=== PATIENT | male | born 1950 | race Caucasian/White ===

== ENCOUNTER 2019-06-02 10:42 | Emergency (ER) | payer OTHER, SELFPAY ==
[2019-06-02] VITALS (7 sets, daily range): BP systolic 159–175; BP diastolic 80–99; PULSE 68–99; RESP 14–22; TEMP 36.2; O2SAT 96–98
--- NOTE | ~2019-06-02 | XR_ITS ---
XR chest 2V DATE: 06/02/2019 11:39 INDICATION: Cough, fever TECHNIQUE: PA and lateral views COMPARISON: None FINDINGS: Several surgical clips overlie the right supraclavicular area. Old lateral right seventh ri b fracture deformity. Mild degenerative spurring of the thoracic spine. Normal heart size. No hilar or mediastinal enlargement. There is minimal aortic unfolding. No pulmonary infiltrate or consolidation, pleural effusion or pulmonary vascular congestion or pneumo thorax. IMPRESSION: No active cardiopulmonary disease Reviewed, dictated and finalized at [facility]. NG TRIMMER
--- NOTE | 2019-06-02 10:49 | ECG_ITS ---
Measurements Intervals [place] Rate: 77 P: 61 VA: 144 QRS: 2 QRSD: 91 T: 18 QT: 372 QTc: 423 Interpretive Statements SINUS RHYTHM DELAYED PRECORDIAL R/S TRANSITION BORDERLINE T WAVE ABNORMALITY- INFERIOR LEADS BORDERLINE ECG Electronically Signed On 06-02-2019 18:54:10 BUCKET CHUCKER by Marco Antonio Lanier D.O.
--- NOTE | 2019-06-02 11:05 | ED.SOB ---
HPI - SOB/Dyspnea General Chief Complaint: Shortness of Breath/Dyspnea Stated Complaint: Cough, SOB, Sent From [facility] Time Seen by Provider: 06/02/19 10:48 Source: patient Mode of arrival: ambulatory Limitations: no limitations History of Present Illness HPI Narrative: This is a 69 year old male that presents to the ER for cold symptoms x 1.5 weeks. Reports fever, cough, congestion, rhinorrhea, and shortness of breath. Also reports generalized weakness. Reports he was seen at the urgent care for this and sent here for further evaluation. Denies chest pain, abdominal pain, nausea, vomiting, dysuria, or hematuria. Related Data Allergies Allergy/AdvReac Type Severity Reaction Status Date / Time No Known Allergies Allergy Verified 06/02/19 10:57 Review of Systems Review of Systems: Narrative: CONSTITUTIONAL: Reports fever, chills ENT: Reports rhinorrhea, congestion, sore throat. Denies otalgia. CARDIOVASCULAR: Denies chest pain or edema. RESPIRATORY: Reports cough and dyspnea. GASTROINTESTINAL: Denies abdominal pain, nausea, vomiting GENITOURINARY: Denies dysuria or hematuria. NEUROLOGIC: Reports weakness. All systems reviewed & are unremarkable except as noted in HPI and below PMFSH Past Medical History Medical History (Updated 06/02/19 @ 13:21 by Francine Paz PA-C) History of Crohn's disease Social History Social History (Updated 06/02/19 @ 11:08 by Francine Paz PA-C) Smoking status: Never smoker Gender identity (if verbalized by the patient): Male Exam Narrative: Exam Narrative: GENERAL: Well-appearing, well-nourished, and in no acute distress. HEAD: Normocephalic, atraumatic. EYES: EOMI. ENT: Nares clear, no rhinorrhea or epistaxis. Mucous membranes moist. Oropharynx without tonsillar hypertrophy exudate or other lesions. Bilateral TMs pearly lopez non-bulging NECK: Supple. No adenopathy or masses. CHEST: No respiratory distress. Mildly coarse breath sounds in the bases. No wheezes, rales or rhonchi HEART: Regular rate and rhythm. No murmur heard. Normal peripheral pulses. EXTREMITIES: Normal range of motion. No edema. SKIN: Warm, dry, no rash. NEURO: No focal deficits. Alert and oriented x3. PSYCH: Normal mood and affect Course Vital Signs Vital signs: Vital Signs Temperature 97.2 F L 06/02/19 10:49 Pulse Rate 68 06/02/19 10:49 Respiratory Rate 14 06/02/19 10:49 Blood Pressure 159/80 H 06/02/19 10:49 Pulse Oximetry 98 06/02/19 10:49 Temperature 97.2 F L 06/02/19 10:49 Pulse Rate 99 06/02/19 13:14 Respiratory Rate 21 H 06/02/19 11:17 Blood Pressure 175/99 H 06/02/19 13:14 Pulse Oximetry 98 06/02/19 10:49 MDM - SOB/Dyspnea MDM Narrative Medical decision making narrative: Patient presents to the emergency department for cold symptoms x1/2 weeks. Reports feeling short of breath. Denies any chest pain. He is afebrile and nontoxic-appearing. Blood pressure has an elevated to the 150s-170s systolic while in the ED. Otherwise vitals are normal. CBC and metabolic panel without acute changes. Lactic acid is not elevated. Influenza screen is negative. Chest x-ray without acute changes. EKG without acute changes. Patient reports improvement after nebulizer treatment and would like to go home. He will be treated with steroids and given an albuterol inhaler for acute bronchitis. He was instructed on other [id number] symptomatic care. He is to follow-up with primary care doctor. Patient made aware of need for follow up for his blood pressure as well. He was given warnings to return to the ER Lab Data Attestation: I reviewed the patient's lab results. Result diagrams: 06/02/19 11:03 06/02/19 11:03 Labs: Lab Results 06/02/19 06/02/19 06/02/19 Range/Units 11:03 11:03 11:03 WBC 6.5 (4.5-10.0) K/mm3 RBC 5.10 (4.6-6.20) M/mm3 Hgb 15.7 (14.0-18.0) g/dL Hct 46.9 (42.0-52.0) % MCV 92.0 (80-100) fl
[2019-06-02] MEDS: ALBUTEROL SULFATE NEB 2.5 MG/0.5 ML INH 5 MG INHALATION (11:06)
[2019-06-02] MEDS: IPRATROPIUM BR 0.02% INH SOLN 0.5 MG/2.5 ML VIAL INHALATION (11:07)
[2019-06-02 11:10] LABS: Basophils Percent Auto 0.6 % (0.2-1.2); Eosinophils Percent Auto 0.6 % (0-4.4); Hematocrit 46.9 % (42.0-52.0); Hemoglobin 15.7 g/dL (14.0-18.0); Immature Granulocyte Absolute 0.03 K/mm3 (0.00-0.031); Immature Granulocyte Percent A 0.5 % (0-0.5); Lymphocytes Absolute Auto 1.48 K/mm3 (0.9-3.2); Lymphocytes Percent Auto 22.6 % (18.3-44.2); Mean Corpuscular HGB Conc 33.5 g/dl (32-36); Mean Corpuscular Hemoglobin 30.8 pg (26-34); Mean Platelet Volume 10.5 fl (7.4-10.4); Monocytes Absolute Auto 0.9 K/mm3 (0.1-0.6); Monocytes Percent Auto 13.3 % (2.6-8.5); Neutrophils Absolute Auto 4.1 K/mm3 (1.3-6.7); Neutrophils Percent Auto 62.4 % (45.5-73.1); Platelet Count Result 283 k/mm3 (150-375); Red Cell Distribution Width 12.8 % (11.5-14.5); White Blood Count 6.5 K/mm3 (4.5-10.0)
[2019-06-02 11:23] LABS: Lactic Acid Reflex 2.1 mmol/L (0.7-2.1)
[2019-06-02 11:26] LABS: Blood Urea Nitrogen 16 mg/dL (9-20); Carbon Dioxide 24 mmol/L (22-30); Chloride 99 mmol/L (98-107); Estimated CRCL calculation 68 ml/min; Estimated Glomerular Filt Rate > 60; Glucose 101 mg/dL (75-110); Potassium 3.9 mmol/L (3.4-5.0); Sodium 139 mmol/L (137-145)
[2019-06-02 11:42] LABS: CRP 2.5 mg/dL (<1.0)
[2019-06-02] MEDS: SODIUM CHLORIDE 0.9% IV 1,000 ML 999 ML IV CONT (12:09)
[2019-06-02 14:06] LABS: Reflex Lactic Acid Yes or No Add Lactic
== END 2019-06-02 13:50 | disposition home or self-care (01) ==
PROVIDERS: Physician Assistant; Emergency Provider Emergency Medicine
DX: J20.9 Acute bronchitis, unspecified (principal); K50.90 Crohn's disease, unspecified, without complications
CPT/HCPCS: 36415; 71046; 80048; 83605; 85025; 86140; 87804; 93005; 94640; 96361; 96365; 99284; J0131; J7030

== ENCOUNTER 2019-06-03 11:55 | Observation (INO) | payer OTHER, SELFPAY ==
[2019-06-03] VITALS (29 sets, daily range): BP systolic 130–173; BP diastolic 50–91; PULSE 73–113; RESP 14–32; TEMP 36.3–37.4; O2SAT 94–100
--- NOTE | ~2019-06-03 | CT_ITS ---
EXAMINATION: CTA chest PE protocol DATE: 06/03/2019 13:10 INDICATION: Dyspnea TECHNIQUE: Computed tomography angiography (CTA) of the chest was performed with 100 mL Omnipaque-350 intravenous contrast timed to evaluate the pulmonary arteries. Coronal maximum intensity projection 3D-reconstructions were created by the technologist. Automated exposure control and iterative reconst ruction technique were employed. Exam dose: 397.03 mGy-cm total exam DLP. COMPARISON: 06/02/2021 view chest FINDINGS: There is diagnostic contrast enhancement of the pulmonary arteries and no evidence of pulmo nary embolism. No thoracic aortic aneurysm or dissection. Heart size is within normal range. No pericardial or pleural effusion. Mild bilateral apical scarring. Right upper lobe calcified pulmonary granuloma. Mild bilateral lower lobe dependent atelectasis. No pulmonary infiltrate or consolidation. Normal morphology of the adrenal glands. Included upper abdominal structures are unremarkable. IMPRESSION: No evidence of pulmonary embolism Reviewed, dictated and finalized at [facility]. Reviewed, dictated and finalized at location [facility]. ISENSOR INTELLIGENCE OFFICER
--- NOTE | 2019-06-03 11:54 | ED.SOB ---
HPI - SOB/Dyspnea General Chief Complaint: Upper Respiratory Infection Stated Complaint: resp distress Time Seen by Provider: 06/03/19 11:56 Source: patient Mode of arrival: EMS Limitations: no limitations History of Present Illness HPI Narrative: A 69 y/o male presents to the ED, via EMS, with c/o SOB. Pt states that he has been SOB for the past 1 week. Yesterday the patient was seen at an urgent care and and sent to [place] ED for further evaluation. At his ED visit yesterday, he was diagnosed with bronchitis and was given a breathing treatment and IV Tylenol with some relief. He tested negative for the flu yesterday. Pt adds that this morning he did not feel good when he woke up and his SOB was worse, so he decided to come to the ED. He reports cough, nausea, and dizziness, but denies vomiting, CP, and fever. Pt is a never smoker and his PCP is Dr. Franco. He has a PMHx of crohn's disease, bowel surgery, and bowel obstruction. MD elicited complaint: shortness of breath Pertinent past history: other (Bronchitis) Onset (ago): week(s) (1) Context: recent illness (Bronchitis) Timing: progressively worsening Relieving factors: bronchodilators (Brething treatment) and medication (IV Tylenol) Associated symptoms: cough, nausea/vomiting and dizziness Related Data Allergies Allergy/AdvReac Type Severity Reaction Status Date / Time No Known Allergies Allergy Verified 06/02/19 10:57 Review of Systems Review of Systems: All systems reviewed & are unremarkable except as noted in HPI and below Constitutional: Constitutional: Denies fever(s) Cardiovascular: Cardiovascular: Denies chest pain Respiratory: Respiratory: Reports cough and Reports dyspnea Gastrointestinal: Gastrointestinal: Reports nausea and Denies vomiting Neurologic: Reports dizziness PMFSH Past Medical History Medical History (Updated 06/03/19 @ 17:28 by Becka Perez MD) Bowel obstruction Bronchitis History of Crohn's disease Surgical History Surgical History (Updated 06/03/19 @ 16:54 by Mitch Mcgarry MD) History of intestinal surgery 1994 SBO treated surgically Family History Family History (Updated 06/03/19 @ 17:02 by Mitch Mcgarry MD) Father , at age 63 after [place] at age 55 Acute myocardial infarction Mother Diabetes mellitus Social History Social History Smoking status: Never smoker Alcohol intake: never Substance use: never Substance use type: does not use Gender identity (if verbalized by the patient): Male Spiritual care concerns: No Agree to blood products: Yes Exam Const: General: cooperative, alert and ill appearing acutely Nutritional Appearance: well nourished Orientation/consciousness: patient oriented x3 Limitations: no limitations HENMT: Mouth: Yes lip normal and Yes moist mucous membranes Resp: Effort & Inspection: normal respiratory effort and tachypneic Auscultation: wheezes expiratory wheezes and throughout Cardio: Rate: tachycardic Rhythm: regular rhythm Peripheral pulses: dorsalis pedis present bilateral 2+ GI: GI Palp: Yes Soft to palpation and No Tenderness to palpation present (GI) Auscultation: normal bowel sounds Skin: General skin exam: normal color Neuro: General: patient oriented x3 Cognition (Neuro): normal cognition Speech: normal speech Extrem: General: normal to inspection, full ROM, no clubbing, cyanosis or edema and no calf tenderness Psych: Mental Status: mental status grossly normal Affect: normal affect Attitude: cooperative Course Course Emergency Course: This presents to the emergency department with respiratory distress via EMS from home. Patient had been seen in the emergency department yesterday and diagnosed with bronchitis and prescribed bronchodilators and steroids. Patient became significantly short of breath this morning and was noted to be rather distressed by EMS evaluation. Patient arr
--- NOTE | 2019-06-03 12:02 | ECG_ITS ---
Measurements Intervals [place] Rate: 93 P: 62 NV: 154 QRS: -6 QRSD: 85 T: 9 QT: 359 QTc: 447 Interpretive Statements SINUS RHYTHM POSSIBLE LEFT ATRIAL ENLARGEMENT DELAYED PRECORDIAL R/S TRANSITION BORDERLINE T WAVE ABNORMALITY- INFERIOR LEADS BASELINE WANDER- III BORDERLINE ECG Electronically Signed On 06-03-2019 16:36:34 [employer]RE[employer] TRAFFIC CONSULTANT by Marco Antonio Lanier D.O.
[2019-06-03 12:32] LABS: INR 0.9; Prothrombin Time 12.2 Seconds (11.1-14.7)
[2019-06-03 12:33] LABS: Partial Thromboplastin Time 23.6 SECONDS (22.3-36.8)
[2019-06-03 12:37] LABS: Lactic Acid Reflex 3.8 mmol/L (0.7-2.1)
[2019-06-03 12:42] LABS: Alkaline Phosphatase 100 U/L (38-126); Aspartate Amino Transferase 34 U/L (17-59); Bilirubin,Total 1.1 mg/dL (0.2-1.3); Blood Urea Nitrogen 15 mg/dL (9-20); Carbon Dioxide 19 mmol/L (22-30); Chloride 100 mmol/L (98-107); Estimated Glomerular Filt Rate > 60; Glucose 108 mg/dL (75-110); Potassium 3.4 mmol/L (3.4-5.0); Sodium 137 mmol/L (137-145)
[2019-06-03] MEDS: IPRATROPIUM BR 0.02% INH SOLN 0.5 MG/2.5 ML VIAL 1.5 MG INHALATION (12:45)
[2019-06-03] MEDS: ALBUTEROL SULFATE NEB 2.5 MG/0.5 ML INH 15 MG INHALATION (12:45)
[2019-06-03 12:47] LABS: NT Pro B Type Natriuretic Pept 266 PG/ML (5-100)
[2019-06-03 12:48] LABS: Troponin I < 0.012 ng/mL (0.000-0.034)
[2019-06-03 12:50] LABS: Basophils Percent Auto 0.3 % (0.2-1.2); Eosinophils Percent Auto 0.2 % (0-4.4); Hematocrit 40.6 % (42.0-52.0); Hemoglobin 13.8 g/dL (14.0-18.0); Immature Granulocyte Absolute 0.02 K/mm3 (0.00-0.031); Immature Granulocyte Percent A 0.3 % (0-0.5); Lymphocytes Absolute Auto 1.02 K/mm3 (0.9-3.2); Lymphocytes Percent Auto 15.8 % (18.3-44.2); Mean Corpuscular Hemoglobin 30.6 pg (26-34); Mean Platelet Volume 9.6 fl (7.4-10.4); Monocytes Absolute Auto 0.8 K/mm3 (0.1-0.6); Monocytes Percent Auto 12.1 % (2.6-8.5); Neutrophils Absolute Auto 4.6 K/mm3 (1.3-6.7); Neutrophils Percent Auto 71.3 % (45.5-73.1); Platelet Count Result 286 k/mm3 (150-375); Red Blood Count 4.51 M/mm3 (4.6-6.20); Red Cell Distribution Width 12.5 % (11.5-14.5); White Blood Count 6.5 K/mm3 (4.5-10.0)
[2019-06-03 12:54] LABS: Alveolar/Arterial O2 Gradient 68.9 mmHg; Carboxyhemoglobin 0.7 % THb (0-2.0); Fractional Inspired Oxygen 21 %; HCO3 ABG 19.9 mEq/l (22.0-26.0); Methemoglobin ABG 0.1 %THb (0-1.5); Oxygen Content ABG 17.9 %vol (16.0-22.0); Oxygen Saturation ABG 93.2 % (95.0-100.0); Oxyhemoglobin 91.7 % THb (90.0-100.0); PO2 ABG 54.6 mmHg (80.0-100.0); Reduced Hemoglobin 7.5 %THb (0-5.0); Total Hemoglobin 13.9 g/dL (12.0-18.0)
[2019-06-03 12:56] LABS: Device ROOM AIR; Modified Allen's Test Pass; PCO2 ABG 21.9 mmHg (35.0-45.0); Site Drawn RIGHT RADIAL; pH ABG 7.577 (7.350-7.450)
[2019-06-03 12:58] LABS: Alanine Aminotransferase 28 U/L (4-50)
[2019-06-03] MEDS: LACTATED RINGERS 1,000 ML 999 ML IV CONT (13:48)
--- NOTE | 2019-06-03 14:09 | PC.NURSE ---
pt eating lunch tray provided by family. ease of breathing greatly improved
[2019-06-03 15:19] LABS: Reflex Lactic Acid Yes or No Add Lactic
--- NOTE | 2019-06-03 15:29 | ADMGEN ---
This patient, Greg Cleveland, was admitted to Medical Room 252-. Patient/family oriented to hospital policies and general routines including ID bracelet, bed and alarms, visiting hours, pain management, procedures, bathroom and other care routines, personal items, smoking policy, room service/diet, and visiting hours. Valuables list has been completed. Information on how to activate the Rapid Response Team has been discussed. Patient/Family are encouraged to report perceived risks to care and to ask questions if they do not understand what they are told or what they should do.
[2019-06-03 16:14] LABS: Lactic Acid 4.5 mmol/L (0.7-2.1)
--- NOTE | 2019-06-03 16:25 | PM.IMHP ---
H&P: HPI History of Present Illness Chief complaint: Acute bronchitis with bronchospasm Narrative: Greg Cleveland is a 69 year old male who was in his usual state of health until about 10 days prior to admission. He developed a dry cough and some shortness of breath and wheezing. He denied fevers or chills. Because he was not improving he went to urgent care on June 02. He received a nebulizer treatment and chest x-ray was sent to the emergency department. He received initial nebulized therapy and was sent home with a meter dose inhaler albuterol and prednisone. He was better through the night and awakened on the morning of June 03. He drinks some water. Because he felt very tired he went back to bed. At 11:00 a.m. he had a severe coughing fit and could not catch his breath. He felt as if he was suffocating. He had chest pain from the coughing. Because he could not catch his breath his face was turning red and he felt like he could not brief his called 911 and he was brought the emergency department. He denied any recent travel or known exposure to ill individuals. He denied fevers chills or sweats. He denied headaches or body aches. He denied change in bowel or bladder function or abnormal bleeding. Review of Systems Review of Systems: All systems reviewed & are unremarkable except as noted in HPI and below PMFSH Past Medical History Medical History (Updated 06/03/19 @ 16:54 by Mitch Mcgarry MD) Bowel obstruction Bronchitis History of Crohn's disease Surgical History Surgical History (Updated 06/03/19 @ 16:54 by Mitch Mcgarry MD) History of intestinal surgery 1994 SBO treated surgically Family History Family History (Updated 06/03/19 @ 15:30 by Uzma Lerner RN) Father , at age 63 after [place] at age 55 Acute myocardial infarction Mother Diabetes mellitus Social History Social History Smoking status: Never smoker Alcohol intake: never Substance use: never Substance use type: does not use Gender identity (if verbalized by the patient): Male Spiritual care concerns: No Agree to blood products: Yes Meds Home Medications and Allergies Home Medications Medication Instructions Recorded Confirmed Type albuterol sulfate 1 inhalation INHALATION Q4-6H PRN 06/02/19 06/03/19 Rx #1 each prednisone 40 mg PO DAILY 5 Days #10 tablet 06/02/19 06/03/19 Rx Allergies Allergy/AdvReac Type Severity Reaction Status Date / Time No Known Allergies Allergy Verified 06/02/19 10:57 Vital Signs Vital Signs - 24 hr 06/03/19 11:56 06/03/19 12:13 06/03/19 12:17 Temperature 99.3 F Pulse Rate 103 H 92 90 Respiratory Rate 21 H 32 H 26 H Blood Pressure 159/83 H Pulse Oximetry 100 06/03/19 12:30 06/03/19 12:31 06/03/19 12:45 Temperature Pulse Rate 83 87 86 Respiratory Rate 16 24 H 19 Blood Pressure 161/87 H Pulse Oximetry 06/03/19 12:46 06/03/19 13:10 06/03/19 13:13 Temperature Pulse Rate 81 87 84 Respiratory Rate 19 22 H 14 Blood Pressure 165/89 H 162/90 H Pulse Oximetry 06/03/19 13:15 06/03/19 13:16 06/03/19 13:32 Temperature Pulse Rate 82 85 90 Respiratory Rate 17 14 18 Blood Pressure 168/89 H Pulse Oximetry 06/03/19 13:34 06/03/19 13:42 06/03/19 13:45 Temperature Pulse Rate 91 102 H 113 H Respiratory Rate 18 22 H 31 H Blood Pressure 167/91 H Pulse Oximetry 06/03/19 13:46 06/03/19 14:00 06/03/19 14:01 Temperature Pulse Rate 108 H 101 H 107 H Respiratory Rate 21 H 25 H 29 H Blood Pressure 173/90 H 150/88 H Pulse Oximetry 06/03/19 15:45 Temperature 98.0 F Pulse Rate 97 Respiratory Rate 16 Blood Pressure 157/76 H Pulse Oximetry 94 Exam Narrative: Exam Narrative: HEENT: EOMI, PERRL, pharyngeal mucosa pink and intact NECK: No JVD, adenopathy, or thyromegaly CHEST: Normal AP diameter. No accessory muscle use or interc
[2019-06-03] MEDS: LACTATED RINGERS 1,000 ML 150 ML IV CONT ×2 (16:38→23:07)
[2019-06-03] MEDS: methylPREDNISolone SOD SUCC 40 MG VIAL IV PUSH (18:15)
[2019-06-03] MEDS: GUAIFENESIN 200 MG/10 ML UDC PO (18:15)
[2019-06-03 18:50] LABS: Blood Urea Nitrogen 14 mg/dL (9-20); Calcium 8.2 mg/dL (8.4-10.2); Carbon Dioxide 21 mmol/L (22-30); Chloride 101 mmol/L (98-107); Estimated Glomerular Filt Rate > 60; Glucose 190 mg/dL (75-110); Lactic Acid 4.5 mmol/L (0.7-2.1); Potassium 3.6 mmol/L (3.4-5.0); Sodium 137 mmol/L (137-145)
[2019-06-03] MEDS: ALBUTEROL SULFATE NEB 2.5 MG/0.5 ML INH 5 MG INHALATION (21:01)
[2019-06-03] MEDS: IPRATROPIUM BR 0.02% INH SOLN 0.5 MG/2.5 ML VIAL INHALATION (21:01)
--- NOTE | 2019-06-03 21:01 | PC.NURSE ---
Pt states that he is not a diabetic and has never been diagnosed with this. Checked his history and there is no documented history of diabetes. The patient refused lantus due to this. Called Felicita Chambers to notify, unable to reach. Will attempt again shortly.
[2019-06-04] VITALS (9 sets, daily range): BP systolic 131; BP diastolic 74; PULSE 70–90; RESP 16–18; TEMP 36.1; O2SAT 97
[2019-06-04] MEDS: ALBUTEROL SULFATE NEB 2.5 MG/0.5 ML INH 5 MG INHALATION ×4 (00:52→11:49)
[2019-06-04] MEDS: IPRATROPIUM BR 0.02% INH SOLN 0.5 MG/2.5 ML VIAL INHALATION ×4 (00:52→11:49)
[2019-06-04] MEDS: GUAIFENESIN 200 MG/10 ML UDC PO ×4 (02:14→13:08)
[2019-06-04] MEDS: methylPREDNISolone SOD SUCC 40 MG VIAL IV PUSH ×2 (02:29→10:49)
[2019-06-04 04:30] LABS: Glucose Point of Care 167 (65-105)
[2019-06-04] MEDS: LACTATED RINGERS 1,000 ML 150 ML IV CONT (05:42)
[2019-06-04 06:05] LABS: Hematocrit 36.1 % (42.0-52.0); Mean Corpuscular HGB Conc 33.2 g/dl (32-36); Mean Corpuscular Hemoglobin 30.4 pg (26-34); Mean Corpuscular Volume 91.4 fl (80-100); Mean Platelet Volume 9.6 fl (7.4-10.4); Platelet Count Result 247 k/mm3 (150-375); Red Blood Count 3.95 M/mm3 (4.6-6.20); Red Cell Distribution Width 12.6 % (11.5-14.5); White Blood Count 5.1 K/mm3 (4.5-10.0)
[2019-06-04 06:21] LABS: Blood Urea Nitrogen 13 mg/dL (9-20); Calcium 8.4 mg/dL (8.4-10.2); Carbon Dioxide 22 mmol/L (22-30); Chloride 102 mmol/L (98-107); Estimated Glomerular Filt Rate > 60; Glucose 147 mg/dL (75-110); Potassium 3.4 mmol/L (3.4-5.0); Sodium 138 mmol/L (137-145)
[2019-06-04 07:00] LABS: Add Urine Microscopic? NO; Appearance Urine Clear (Clear); Bilirubin Urine Negative (Negative); Blood Urine Negative (Negative); Color Urine Yellow (Yellow); Glucose Urine UA Negative (Negative); Ketones Urine Negative (Negative); Leukocyte Esterase Ur Negative LEU/UL (Negative); Nitrate Urine Negative (Negative); Protein Urine Negative (Negative); Specific Grav Ur 1.015 (1.001-1.035); Urobilinogen Urine Negative mg/dL (<2.0)
[2019-06-04 13:00] LABS: Glucose Point of Care 127 (65-105)
--- NOTE | 2019-06-04 13:07 | PM.DS ---
DS: Diagnosis Admitting Diagnosis Admitting Diagnosis: Acute bronchitis, unspecified Discharge Diagnosis (1) Bronchitis, acute, with bronchospasm: Code(s): J20.9 - Acute bronchitis, unspecified Status: Acute Assessment and Plan: Clinically this is a viral syndrome Treat symptomatically with nebulized bronchodilators and steroids and mucolytics (2) Acute respiratory failure with hypoxemia: Code(s): J96.01 - Acute respiratory failure with hypoxia Status: Acute Assessment and Plan: Clinically due to acute bronchitis with bronchospasm Pulmonary CTA negative for infiltrates interstitial lung disease and pulmonary emboli Monitor vitals and administer oxygen as needed DS: Summary Hospital Course Reason for hospitalization: cough and dyspnea Hospital Course: Responded nicely to symptomatic treatment as outlined under problems. Status at Discharge Functional status at discharge: independent ambulation Overall status at discharge: patient is progressing back to baseline Time Spent with Patient Time attestation: Total time spent providing and/or coordinating discharge services: 35 min Exam Narrative: Exam Narrative: HEENT: EOMI, PERRL, pharyngeal mucosa pink and intact NECK: No JVD, adenopathy, or thyromegaly CHEST: Normal AP diameter. No accessory muscle use or intercostal contractions. Coarse breath sounds with diffuse rhonchi. HEART: NL S1/S2, regular, no murmur ABDOMEN: BS+, soft, nontender, no mass, no bruits EXTREMITIES: No cyanosis, edema, or clubbing NEUROLOGIC: CN intact and symmetric to inspection. MUSCULOSKELETAL: Tone and strength symmetric. PSYCH: Alert. Oriented to person, place, and time. DS: Data Data Completed and Pending Labs on day of discharge: Labs from last 24 hours 06/04/19 06/04/19 06/04/19 12:15 06:47 05:34 WBC RBC Hgb Hct MCV MCH MCHC RDW Plt Count MPV Sodium 138 Potassium 3.4 Chloride 102 Carbon Dioxide 22 BUN 13 Creatinine 1.00 Estim Creat Clear Calc Not Reportable Estimated GFR > 60 Glucose 147 H POC Capillary Glucose 127 H Lactic Acid Calcium 8.4 Urine Color Yellow Urine Appearance Clear Urine pH 5.0 Ur Specific Orange 1.015 Urine Protein Negative Urine Glucose (UA) Negative Urine Ketones Negative Ur Blood (Man) Negative Urine Nitrate Negative Urine Bilirubin Negative Urine Urobilinogen Negative Leukocyte Esterase Rfl Negative 06/04/19 06/03/19 06/03/19 05:34 20:49 18:33 WBC 5.1 RBC 3.95 L Hgb 12.0 L Hct 36.1 L MCV 91.4 MCH 30.4 MCHC 33.2 RDW 12.6 Plt Count 247 MPV 9.6 Sodium Potassium Chloride Carbon Dioxide BUN Creatinine Estim Creat Clear Calc Estimated GFR Glucose POC Capillary Glucose 167 H Lactic Acid 4.5 H* Calcium Urine Color Urine Appearance Urine pH Ur Specific Orange Urine Protein Urine Glucose (UA) Urine Ketones Ur Blood (Man) Urine Nitrate Urine Bilirubin Urine Urobilinogen Leukocyte Esterase [facility] 06/03/19 06/03/19 18:33 15:48 WBC RBC Hgb Hct MCV MCH MCHC RDW Plt Count MPV Sodium 137 Potassium 3.6 Chloride 101 Carbon Dioxide 21 L BUN 14 Creatinine 1.10 Estim Creat Clear Calc Not Reportable Estimated GFR > 60 Glucose 190 H POC Capillary Glucose Lactic Acid 4.5 H* Calcium 8.2 L Urine Color Urine Appearance Urine pH Ur Specific Orange Urine Protein Urine Glucose (UA) Urine Ketones Ur Blood (Man) Urine Nitrate Urine Bilirubin Urine Urobilinogen Leukocyte Esterase Rfl Discharge Plan Discharge Attending physician on discharge: Mitch Mcgarry Consulting providers: Marco Antonio Lanier ; Greg Mansfield Discharging Clinician: Mitch Mcgarry Patient Disposition: Home, Self-Care Activity: ot
--- NOTE | 2019-06-04 15:19 | PCCCNOTE ---
On 06/04/19, the student, [Nicolasa Castellanos ], provided care and completed [facility] documentation on this patient. I have reviewed the student's documentation and agree with the findings.
== END 2019-06-04 13:40 | disposition home or self-care (01) ==
LOC: ANHED 14:13 → ANH2MED 14:17
PROVIDERS: Admitting Provider Family Medicine; Emergency Provider Emergency Medicine; Referring Provider Emergency Medicine; Visit Provider Internal Medicine
DX: J20.9 Acute bronchitis, unspecified (principal); J96.01 Acute respiratory failure with hypoxia; E87.2 Acidosis; E87.3 Alkalosis
CPT/HCPCS: 36415; 36600; 71275; 80048; 80053; 81003; 82375; 82805; 83050; 83605; 83880; 84484; 85025; 85027; 85610; 85730; 87804; 93005; 94640; 94667; 96360; 96361; 96374; 96376; 99285; A9270; G0378; J2920; J7120; Q9967

== ENCOUNTER 2022-03-27 10:03 | Emergency (ER) | payer OTHER, SELFPAY ==
[2022-03-27 10:16] VITALS: BP 156/90; PULSE 80; RESP 16; TEMP 36.6; O2SAT 97
--- NOTE | 2022-03-27 10:48 | ED.GENADULT ---
HPI - General Adult General Chief complaint: Upper Respiratory Infection Stated complaint: SOB, Cough Source: patient Mode of arrival: ambulatory Limitations: no limitations History of Present Illness HPI narrative: Patient presents for evaluation of sinus symptoms for last week. Symptoms include sinus congestion, pressure, mucopurulent discharge from his nares, postnasal drainage. He has no developed a cough secondary to postnasal drainage. No fever, chills, nausea, vomiting, diarrhea. His spouse has similar symptoms. He has received COVID vaccination and booster. He had COVID in 2019. He has received a flu shot this year. No additional complaints or concerns. Related Data Home Medications Medication Instructions Recorded Confirmed cyanocobalamin (vitamin B-12) mcg 03/27/22 1,000 mcg/mL injection solution Allergies Allergy/AdvReac Type Severity Reaction Status Date / Time No Known Allergies Allergy Verified 03/27/22 10:11 Review of Systems Review of Systems: CONSTITUTIONAL: Denies fever, chills, or sweats. EYES: Denies visual changes, redness, or discharge. ENT: reports sinus congestion, pressure, mucopurulent discharge from the nares, postnasal drainage CARDIOVASCULAR: Denies chest pain, palpitations, or edema. RESPIRATORY: reports cough and some mild exertional dyspnea GASTROINTESTINAL: Denies abdominal pain, nausea, vomiting, or diarrhea. GENITOURINARY: Denies dysuria or hematuria. SKIN: Denies rash or itching. MUSCULOSKELETAL: Denies back pain, joint pain, or myalgia. NEUROLOGIC: Denies headache, numbness, dizziness, or weakness. PSYCHIATRIC: Denies anxiety or depression. [facility] Past Medical History Medical History Bowel obstruction Bronchitis History of Crohn's disease Surgical History Surgical History History of intestinal surgery 1994 SBO treated surgically Family History Family History Father , at age 63 after [place] at age 55 Acute myocardial infarction Mother Diabetes mellitus Social History Social History Smoking status: Never smoker Alcohol intake: never Substance use: never Substance use type: does not use Gender identity (if verbalized by the patient): Male Spiritual care concerns: No Agree to blood products: Yes Exam Narrative: GENERAL: Well-appearing, well-nourished, and in no acute distress. HEAD: Normocephalic, atraumatic. EYES: PERRLA and EOMI. ENT: Nares clear, no rhinorrhea or epistaxis. Mucous membranes moist. Oropharynx without tonsillar hypertrophy exudate or other lesions. Bilateral TMs pearly lopez nonbulging NECK: Supple. No adenopathy or masses. No carotid bruits or JVD CHEST: Clear to auscultation. No respiratory distress. No wheezes rales or rhonchi HEART: Regular rate and rhythm. No murmur heard. Normal peripheral pulses. ABDOMEN: Soft, nontender, nondistended, normal active bowel sounds. EXTREMITIES: Normal range of motion. No edema. SKIN: Warm, dry, no rash. NEURO: No focal deficits. Alert and oriented x3. PSYCH: Normal mood and affect. Course Course Emergency Course: this is a 72-year-old male who presented for evaluation of sinus symptoms. Based on duration of symptoms and nature of discharge he meets criteria for ABRS. Will treat with Augmentin. I did offer chest x-ray, flu and COVID testing, all of which he declined. Follow-up outpatient for further evaluation treatment go to the ER for worsening symptoms. Patient is in agreement with plan of care. Level of Care: Express Care Visit Vital Signs Vital signs: Vital Signs Temperature 36.6 C 03/27/22 10:16 Pulse Rate 80 03/27/22 10:16 Respiratory Rate 16 03/27/22 10:16 Blood Pressure 156/90 H 03/27/22 10:16
== END 2022-03-27 10:58 | disposition home or self-care (01) ==
PROVIDERS: Emergency Provider Nurse Practitioner
DX: J01.90 Acute sinusitis, unspecified (principal); K50.90 Crohn's disease, unspecified, without complications; Z86.16 Personal history of COVID-19
CPT/HCPCS: 99213; G0463

== ENCOUNTER 2024-09-19 08:02 | Emergency (ER) | payer OTHER, SELFPAY ==
--- NOTE | ~2024-09-19 | XR_ITS ---
CHEST RADIOGRAPH, PA AND LATERAL CLINICAL HISTORY: cough for 1 week . COMPARISON: 06/02/2019 TECHNIQUE: PA and lateral views of the chest. FINDINGS The cardiomediastinal silhouette is unremarkable. The lungs are clear. IMPRESSION: No focal infiltrate or effusion. Reviewed, dictated and finalized at location A.
[2024-09-19 08:15] VITALS: BP 99/67; PULSE 70; RESP 16; TEMP 36.7; O2SAT 96
--- NOTE | 2024-09-19 08:25 | ED_ITS ---
HPI - URI/Sore Throat General Chief Complaint: Upper Respiratory Infection Stated Complaint: COLD/COUGH Time Seen by Provider: 09/19/24 08:15 Source: patient and RN notes reviewed Mode of arrival: ambulatory Limitations: no limitations History of Present Illness HPI Narrative: 74-year-old male presents Express Care complaining of cough and congestion, sinus pressure for 1 week. Patient says symptoms are getting better has suddenly worse over the last few days. Patient reports a dry nonproductive cough that is worse with exertion or lying flat. Patient states he feels short of breath at times when he gets into coughing fits. Patient denies cough anything up reports having yellow and green nasal discharge. Patient denies any fevers, body aches, chills, ear pain, chest pain, nausea, vomiting, diarrhea, or any other symptoms. Related Data Home Medications ?Medication ?Instructions ?Recorded ?Confirmed ?Last Taken ?Type cyanocobalamin (vitamin B-12) 1,000 mcg subcut MONTHLY 03/27/22 03/27/22 Unknown History 1,000 mcg/mL injection solution losartan 50 mg-hydrochlorothiazide tablet 09/19/24 Unknown History 12.5 mg tablet Allergies Allergy/AdvReac Type Severity Reaction Status Date / Time No Known Allergies Allergy Verified 09/19/24 08:14 Review of Systems Review of Systems: CONSTITUTIONAL: Denies fever, chills, body aches, or sweats. EYES: Denies visual changes, redness, or discharge. ENT: Positive for congestion. Negative for rhinorrhea, Sore throat, or otalgia. CARDIOVASCULAR: Denies chest pain, palpitations, or edema. RESPIRATORY: Positive for cough and dyspnea with exertion. Negative for dyspnea at rest. GASTROINTESTINAL: Denies abdominal pain, nausea, vomiting, or diarrhea. GENITOURINARY: Denies dysuria or hematuria. SKIN: Denies rash or itching. MUSCULOSKELETAL: Denies back pain, joint pain, or myalgia. NEUROLOGIC: Denies headache, numbness, or weakness. PSYCHIATRIC: Denies anxiety or depression. All other systems reviewed are negative, except as documented in HPI. [facility] Past Medical History Medical History Bronchitis Bowel obstruction History of Crohn's disease Surgical History Surgical History History of intestinal surgery 1994 SBO treated surgically Family History Family History Father , at age 63 after OK at age 55 Acute myocardial infarction Mother Diabetes mellitus Social History Social History Smoking status: Never smoker Alcohol intake: never Substance use: never Substance use type: does not use Gender identity (if verbalized by the patient): Male Spiritual care concerns: No Agree to blood products: Yes Comments At the time of my signature, I reviewed and agree with the nursing past medical, surgical, social, and family history. There is no relevant family history pertinent to the patient complaint. Exam Narrative: GENERAL: This is a well-nourished, well-developed adult, in no apparent distress. They are non ill-appearing, nontoxic appearing. HEAD: normocephalic, atraumatic. EYES: Sclera clear/white. Vision is grossly intact. Conjunctiva normal bilaterally. Extraocular movements intact. EARS: External ears normal, auditory canals clear and without drainage, TMs without erythema or perforation. Hearing grossly intact. NOSE: External nose normal with no obvious nasal discharge, nasal turbinates erythematous, no rhinorrhea. THROAT: Mucous membranes moist, posterior pharynx pink without redness or swelling. No exudate. Uvula is midline. Postnasal drip present. NECK: Neck supple, non-tender without lymphadenopathy, masses or thyromegaly. CARDIOVASCULAR: Regular rate and rhythm without murmurs, gallops, or rubs. RESPIRATORY: Clear to auscultation. Breath sounds equal bilaterally. No wheezes, rales, or rhonchi. Respiratory rate normal, respiratory effort nonlabored, no respiratory distress SKIN: warm, Dry, intact with no suspicious lesions or rash, good texture and turgor. NEURO: awake, alert, and oriented to person, place and time. There were no obvious focal neurologic abnormalities. EXTREMITIES: No joint tenderness, effusion, or edema noted. BACK: Nontender without deformity. Course Course Emergency Course: Portions of this record may have been created with voice recognition software Level of Care: Express Care Visit Vital Signs Vital signs: Vital Signs Oxygen Delivery Room Air 09/19/24 08:14 Temperature 98.1 F 09/19/24 08:15 Pulse Rate 70 09/19/24 08:15 Respiratory Rate 16 09/19/24 08:15 Blood Pressure 118/72 09/19/24 08:55 Pulse Oximetry 96 09/19/24 08:15 Oxygen Delivery Room Air 09/19/24 08:14 MDM - URI/Sore Throat MDM Narrative Medical decision making narrative: Chest x-ray negative for any evidence of pneumonia or acute findings. Symptoms likely consistent with a bacterial sinusitis. Will treat empirically with Augmentin. Discussed physical exam findings. Advised supportive measures and signs/symptoms to go to the ER. Pt is appropriate for outpt treatment and f/u. Differential Diagnosis Differential diagnosis: Likely upper respiratory infection, sinusitis, bronchitis and other (Pneumonia) Imaging Data Radiologist's impression: ITS Impressions Chest X-Ray 09/19/24 08:46 IMPRESSION: No focal infiltrate or effusion. Discharge Plan Discharge Clinical Impression: Sinusitis Qualifiers: Sinusitis location: unspecified location Chronicity: acute Recurrence: non- recurrent Qualified Code(s): J01.90 - Acute sinusitis, unspecified Patient Disposition: Home Condition: Stable Instructions: Antibiotic Form, Sinusitis (ED) Additional Instructions: Your chest x-ray was negative for any evidence of pneumonia or acute findings. Take the antibiotics as directed and complete the course even if you start to feel better. You may use a Neti pot saline rinse 3 times a day with lukewarm distilled water Take benzonatate tablets as needed for cough. Continue to take Tylenol or Motrin for pain. Use a humidifier or vaporizer at night. Drink plenty of water. 8-10 glasses per day. Use flonase 2 times per day for 5 days then as needed Take mucinex 2 times per day and be sure to take with 8oz of water. Follow up with Primary provider in 3-5 days Please go to the ER if he develops any difficulty breathing, worsening symptoms, or any other concerns Patient Language: Nepali Prescriptions: New benzonatate 100 mg capsule 100 mg PO TID PRN (Reason: cough) Qty: 20 0RF amoxicillin-pot clavulanate 875-125 mg tablet 1 tablet PO Q12H 7 Days Qty: 14 0RF No Action losartan-hydrochlorothiazide 50-12.5 mg tablet cyanocobalamin (vitamin B-12) 1,000 mcg/mL solution 1,000 mcg subcut MONTHLY Follow-up/Referrals: Salvador,Mike [Other] Time of Disposition: 08:53
[2024-09-19 08:55] VITALS: BP 118/72
== END 2024-09-19 08:55 | disposition home or self-care (01) ==
DX: J01.90 Acute sinusitis, unspecified (principal); K50.90 Crohn's disease, unspecified, without complications
CPT/HCPCS: 71046; 99213; G0463